=== PATIENT | female | born 1935 | race Caucasian/White ===

== ENCOUNTER 2016-12-15 13:48 | Emergency (ER) | payer MEDICARE, OTHER ==
[2016-12-15 14:03] VITALS: BP 119/67
--- NOTE | 2016-12-15 14:52 | RAD ---
HISTORY: Back pain COMPARISONS: February 02, 2016 VIEWS: 3 , Frontal, lateral, and coned-down lateral sacral views of the lumbar spine FINDINGS: ALIGNMENT: There is grade 1 anterolisthesis of L5 on S1. VERTEBRAL BODIES: There is diffuse osteopenia. There is stable chronic compression deformity of L1 and of T12, the patient appears to be status post percutaneous vertebral augmentation.. There are bilateral pars defects at L5. There is multilevel anterolateral marginal osteophyte formation. JOINTS: There is diffuse facet hypertrophic change. INTERVERTEBRAL DISCS: There is diffuse loss of intervertebral disc height. SOFT TISSUE: Unremarkable. OTHER: The patient is status post internal fixation of the right femur IMPRESSION: 1. OSTEOPENIA. 2. 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 3. 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 4. DEGENERATIVE DISC DISEASE AND OSTEOARTHRITIS
--- NOTE | 2016-12-15 18:28 | UC ---
Back Pain HPI - HPI Summary HPI Summary: PAIN IN LOWER BACK AFTER MOVING LARGE FURNITURE LAST WEEK. HAS HISTORY OF SPONDYLOSIS, AND MRI DIAGNOSED L5 FRACTURE. NO LOSS OF CONTROL OF BLADDER OR BOWELS. NO FEVER. NO PAIN WITH URINATION. HAS HISTORY OF BENIGN HEMATURIA - History of Current Complaint Chief Complaint: UCBackPain Stated Complaint: LOWER BACK PAIN Time Seen by Provider: 12/15/16 14:10 Hx Obtained From: Patient Onset/Duration: Sudden Onset, Lasting Days, Still Present Timing: Lasting Days Severity Initially: Moderate Severity Currently: Moderate Pain Intensity: 5 Pain Scale Used: 0-10 Numeric Back Pain: Is Discrete @ - LOW BACK Character: Dull, Aching, Spasmodic Aggravating: Movement, Lifting, Bending Alleviating: Position Associated Signs And Symptoms: Negative: Fever, Weakness, Numbness, Tingling, Abdominal Pain, Flank Pain, Bladder Incontinence, Bowel Incontinence, Pain with Weight Bearing Related History: Previous Back Injury - Risk Factors AAA Risk Factors: Negative TAD Risk Factors: Negative Cauda Equina Risk Factors: Negative Epidural Abscess Risk Factors: Negative - Allergies/Home Medications Allergies/Adverse Reactions: Allergies Allergy/AdvReac Type Severity Reaction Status Date / Time No Known Allergies Allergy Verified 08/04/15 11:32 Home Medications: Home Medications Aspirin [[place]ury Advanced Aspirin Ex] 500 mg PO 12/15/16 [History] Cholecalciferol [Vitamin D] 1,000 unit PO 12/15/16 [History] PMH/Surg Hx/FS Hx/Imm Hx Previously Healthy: Yes - Surgical History Surgical History: Yes Surgery Procedure, Year, and Place: RT FEMUR LEG SURGERY (FRACTURE) TITANIUM IN LEG PER PATIENT 10 YRS AGO - Family History Known Family History: Negative: Blood Disorder - Social History Occupation: Retired Lives: With Family Alcohol Use: None Substance Use Type: None Smoking Status (MU): Never Smoked Tobacco Review of Systems Constitutional: Negative Skin: Negative Eyes: Negative ENT: Negative Respiratory: Negative Cardiovascular: Negative Gastrointestinal: Negative Genitourinary: Negative Motor: Negative Neurovascular: Negative Musculoskeletal: Arthralgia, Myalgia Neurological: Negative Psychological: Negative All Other Systems Reviewed And Are Negative: Yes Physical Exam Triage Information Reviewed: Yes Appearance: Well-Appearing, Well-Nourished, Pain Distress - MODERATE Vital Signs: Initial Vital Signs Temp 99.0 F 12/15/16 13:59 Pulse 103 12/15/16 13:59 Resp 18 12/15/16 13:59 BP 119/67 12/15/16 13:59 Pulse Ox 98 12/15/16 13:59 Vital Signs Reviewed: Yes Eye Exam: Normal ENT Exam: Normal ENT: Positive: Normal ENT inspection, TMs normal Dental Exam: Normal Neck exam: Normal Neck: Positive: Supple, Nontender, No Lymphadenopathy Respiratory Exam: Normal Respiratory: Positive: Chest non-tender, Lungs clear, Normal breath sounds, No respiratory distress Cardiovascular Exam: Normal Cardiovascular: Positive: RRR, No Murmur, Pulses Normal, Brisk Capillary Refill Abdominal Exam: Normal Abdomen Description: Positive: Nontender, No Organomegaly. Negative: CVA Tenderness (R), CVA Tenderness (L) Musculoskeletal: Positive: Strength Intact, ROM Intact, No Edema, Other: - POSITIVE STRAIGHT LEG RAISE BIALTERALLY Neurological Exam: Normal Psychological Exam: Normal Psychological: Positive: Normal Response To Family Skin Exam: Normal Back Pain Course/Dx - Differential Dx/Diagnosis Differential Diagnosis/HQI/PQRI: Arthritis, Fracture, Herniated Disc, Osteoporosis, Strain, Sprain Provider Diagnoses: ACUTE ON CHRONIC LOW BACK PAIN; LUMBAT OSTEOPENIA; SPONDYLOLYSIS WITH ANTEROLISTHESIS L5-S1; STABLE CHRONIC COMPRESSION DEFORMITIS OF T12 AND L1; DEGENERATIVE DISC DISEASE AND OSTEOARTHRITIS Discharge - Discharge Plan Condition: Stable Disposition: HOME Prescriptions: HYDROcodone/ACETAMIN 5-325 MG* [[place] 5-325 TAB*] 1 tab PO Q8H PRN #12 tab MDD three tabs PRN Reason: Pain Metaxalone TAB* [Skelaxin TAB*] 800 mg PO BID #10 tab Patient Education Materials: Osteoarthritis (ED), Osteoporosis (ED), Lumbar Radiculopathy (ED), Degenerative Disc Disease (ED) Referrals: Nilam Croft MD [Primary Care Provider] - Additional Instructions: PHYSICAL THERAPY REFERRAL: You have been prescribed physical therapy. Treatments may include stretching, exercise, application of heat or cold, and other modalities. After an injury, PT can reduce swelling and pain. In recovery, PT is used to restore mobility and strength. Your specific treatment goals are: Reduction of Swelling (EGS, US, ice as needed) __x___ Pain Reduction (EGS, US, ice as needed) ___x__ TENS Pack Fitting and Instruction Wound Hydrotherapy ___x__ Preservation of Mobility ___x__ Latter Day of Mobility ___x__ Strength Latter Day ___x__ Work or Sports Hardening This instruction sheet also serves as your PHYSICAL THERAPY REFERRAL! Please take it with you to the therapist, so he/she will be aware of your diagnosis and treatment plan. You may see the physical therapist of your choice for these treatments, but may wish to check with your insurance to be sure the provider you select is covered. It's important to see the doctor to whom you have been referred for follow up.
== END 2016-12-15 15:34 | disposition home or self-care (01) ==
LOC: UCEAST 13:48
DX: Z79.82 Long term (current) use of aspirin (principal); M54.5 Low back pain; M85.88 Other specified disorders of bone density and structure, other site; M43.07 Spondylolysis, lumbosacral region; M51.35 Other intervertebral disc degeneration, thoracolumbar region; M19.90 Unspecified osteoarthritis, unspecified site
CPT/HCPCS: 72100; 81003; 99212; G0463

== ENCOUNTER 2020-04-23 07:26 | Observation (INO) ==
[~2020-04-23 07:26] MED LIST: Buffered Lidocaine 1% SYRIN 1 ml INTRADERM ONE; Lactated Ringers 1000 ml BAG 1,000 ML IV SCH
[2020-04-23] MEDS ORDERED: ceFAZolin 2 GM PREMIX 2 GM/50 ML BAG ONE (08:04)
[2020-04-23] MEDS ORDERED: Buffered Lidocaine 1% SYRIN 1 ml INTRADERM ONE (08:04)
[2020-04-23] MEDS ORDERED: Propofol 10 MG/ML 20 ML BTL ONE (08:57)
[2020-04-23] MEDS ORDERED: Succinylcholine 200 mg VIAL 20 mg/ml 10 ml VIAL (200 mg) ONE (08:57)
[2020-04-23] MEDS ORDERED: Midazolam 2 mg/2 ml VIAL 1 mg/ml 2 ml VIAL (2 mg) ONE (08:58)
[2020-04-23] MEDS ORDERED: fentaNYL 100 mcg/2 ml 50 MCG/ML VIAL ONE ×2 (08:58→12:42)
[2020-04-23] MEDS ORDERED: Lidocaine 2% PF 5 ML VIAL ONE ×3 (08:58→10:44)
[2020-04-23] MEDS ORDERED: ROPIVACAINE 5 MG/ML 30 ML BTL (0.5%) ONE (08:59)
[2020-04-23] MEDS ORDERED: Dexmedetomidine 200 mcg/2 ml 2 ml VIAL (200 mcg) ONE (08:59)
[2020-04-23] MEDS ORDERED: Bupivacaine 0.5% SDV PF 30ML VIAL ONE (09:35)
[2020-04-23] MEDS ORDERED: Phenylephrine 40 mcg/mL 10mL (400mcg) SYRINGE ONE ×2 (10:32→12:04)
[2020-04-23] MEDS ORDERED: Dexamethasone IV 4 MG/ML VIAL 1 ml VIAL ONE (10:44)
[2020-04-23] MEDS ORDERED: Ondansetron 4 mg VIAL 2 MG/ML 2 ml VIAL ONE (10:44)
[2020-04-23] MEDS ORDERED: Naloxone 0.4 mg VIAL 0.4 mg/ml 1 ml VIAL IV PRN (11:06)
[2020-04-23] MEDS ORDERED: DiMENhydriNATE IV 50 mg/ml 1 ml VIAL IV PUSH PRN (11:06)
[2020-04-23] MEDS ORDERED: Acetaminophen IV 1 GM/100ML 100 ML ONE (12:06)
[2020-04-23] MEDS ORDERED: Metoclopramide 5 MG/ML VIAL (10 mg) ONE (12:08)
[2020-04-23] MEDS ORDERED: Ondansetron 4 mg VIAL 2 MG/ML 2 ml VIAL IV PRN (12:32)
[2020-04-23] MEDS ORDERED: Ondansetron ODT 4 mg TAB 4 MG TAB PO PRN (12:32)
[2020-04-23] MEDS ORDERED: Morphine 2 MG/ML SYRINGE IV PRN (12:32)
[2020-04-23] MEDS ORDERED: diPHENhydraMINE 25 mg TAB PO PRN (12:32)
[2020-04-23] MEDS ORDERED: diPHENhydraMINE IV 50 MG/ML 1 ml VIAL (BENADRYL) IV PRN (12:32)
[2020-04-23] MEDS ORDERED: HYDROcodone/ACETAMIN 5/325 mg TAB PO PRN ×2 (12:44)
[2020-04-23] MEDS: fentaNYL 100 mcg/2 ml 50 MCG/ML VIAL IV PRN ×3 (12:44→13:11)
[2020-04-24 06:18] LABS: Hematocrit 25 % (35-47); Hemoglobin 8.5 g/dL (12.0-16.0)
[2020-04-24 06:40] LABS: BUN/Creatinine Ratio 18.2 (8-20); Calcium 8.2 mg/dL (8.6-10.3); EGFR African American 74.1 (>60); EGFR Non-African American 61.2 (>60); Potassium 4.2 mmol/L (3.5-5.0)
[2020-04-24 11:44] VITALS: BP 115/48
== END 2020-04-24 12:00 | disposition home or self-care (01) ==
LOC: AA 07:26 → INTOOBSV 07:26 → EDSTATUS 09:30 → SSU 13:38
PROVIDERS: ADMIT Orthopaedic Surgery; ATTEND Orthopaedic Surgery

== ENCOUNTER 2020-06-21 05:36 | Inpatient (IN) ==
[~2020-06-21 05:36] MED LIST changes: -Buffered Lidocaine 1% SYRIN 1 ml INTRADERM ONE; -Lactated Ringers 1000 ml BAG 1,000 ML IV SCH; +Naloxone 0.4 mg VIAL 0.4 mg/ml 1 ml VIAL IV PRN
[2020-06-21] MEDS ORDERED: Lactated Ringers 1000 ml BAG 1,000 ML IV SCH (06:00)
[2020-06-21] MEDS ORDERED: Buffered Lidocaine 1% SYRIN 1 ml INTRADERM ONE (06:00)
[2020-06-21] MEDS ORDERED: ceFAZolin 2 GM PREMIX 2 GM/50 ML BAG ONE ×2 (06:52→12:34)
[2020-06-21] MEDS ORDERED: Propofol 10 MG/ML 20 ML BTL ONE (06:58)
[2020-06-21] MEDS ORDERED: fentaNYL 100 mcg/2 ml 50 MCG/ML VIAL ONE ×2 (06:58→11:39)
[2020-06-21] MEDS ORDERED: Rocuronium 50 mg VIAL 10 mg/ml 5 ml VIAL (50 mg) ONE (06:59)
[2020-06-21] MEDS ORDERED: Lidocaine 2% PF 5 ML VIAL ONE (06:59)
[2020-06-21] MEDS ORDERED: Vancomycin 1,000 MG VIAL ONE (07:17)
[2020-06-21] MEDS ORDERED: Lidocaine 1% MPF 5 ML VIAL ONE (07:18)
[2020-06-21] MEDS ORDERED: ROPIVACAINE 5 MG/ML 30 ML BTL (0.5%) ONE (07:18)
[2020-06-21] MEDS ORDERED: Ondansetron 4 mg VIAL 2 MG/ML 2 ml VIAL IV PRN ×2 (08:29→12:37)
[2020-06-21] MEDS ORDERED: HYDROmorphone 1 MG/1 ML SYRINGE IV PRN (08:29)
[2020-06-21] MEDS ORDERED: fentaNYL 100 mcg/2 ml 50 MCG/ML VIAL IV PRN (08:29)
[2020-06-21] MEDS ORDERED: Naloxone 0.4 mg VIAL 0.4 mg/ml 1 ml VIAL IV PRN (08:29)
[2020-06-21] MEDS ORDERED: Dexamethasone IV 4 MG/ML VIAL 1 ml VIAL ONE (08:48)
[2020-06-21] MEDS ORDERED: Ondansetron 4 mg VIAL 2 MG/ML 2 ml VIAL ONE (08:48)
[2020-06-21] MEDS ORDERED: Phenylephrine IV 10 MG/ML 1 ml VIAL ONE (08:49)
[2020-06-21] MEDS ORDERED: Phenylephrine 40 mcg/mL 10mL (400mcg) SYRINGE ONE (08:49)
[2020-06-21] MEDS ORDERED: Ondansetron ODT 4 mg TAB 4 MG TAB PO PRN (12:37)
[2020-06-21] MEDS ORDERED: Magnesium Hydroxide LIQ 30 ML UDC PO PRN (12:37)
[2020-06-21] MEDS ORDERED: diPHENhydraMINE IV 50 MG/ML 1 ml VIAL (BENADRYL) IV PRN (12:37)
[2020-06-21] MEDS ORDERED: diPHENhydraMINE 25 mg TAB PO PRN (12:37)
[2020-06-21] MEDS ORDERED: Lactulose 30 ml UDC PO PRN (12:37)
[2020-06-21] MEDS ORDERED: oxyCODONE/Acetamin 5/325 mg TAB PO PRN (12:43)
[2020-06-21] MEDS ORDERED: Morphine 2 MG/ML SYRINGE IV PRN (12:43)
[2020-06-21] MEDS ORDERED: CAMPHOR MENTHOL TOPICAL PRN (12:58)
[2020-06-21] MEDS ORDERED: ceFAZolin 1 GM ADVAN 1 GM in NS 0.9% 50 ML 50 ML IVPB SCH (13:00)
[2020-06-21] MEDS ORDERED: Simethicone SUSP ORALSYR 66.66 MG/ML PO ONE (13:25)
[2020-06-21] MEDS: Lactated Ringers 1000 ml BAG 1,000 ML IV SCH ×2 (15:20→23:35)
[2020-06-21] MEDS: ceFAZolin 1 GM ADVAN 1 GM in NS 0.9% 50 ML 50 ML IVPB SCH ×2 (16:05→23:34)
[2020-06-21] MEDS: Analgesic BALM 114 GM TOPICAL SCH ×2 (18:30→21:33)
[2020-06-21] MEDS: Magnesium Hydroxide LIQ 30 ML UDC PO SCH (21:33)
[2020-06-22] MEDS ORDERED: Polyethylene Glycol 3350 17 GM PACKET PO PRN (00:01)
[2020-06-22] MEDS: oxyCODONE/Acetamin 5/325 mg TAB PO PRN ×3 (02:03→11:09)
[2020-06-22 06:47] LABS: Hematocrit 23 % (35-47); Hemoglobin 7.8 g/dL (12.0-16.0); Mean Platelet Volume 8.5 fL (7.4-10.4); Platelet Count 118 10^3/uL (150-450)
[2020-06-22 07:09] LABS: BUN/Creatinine Ratio 18.3 (8-20); Calcium 7.6 mg/dL (8.6-10.3); EGFR African American 80.4 (>60); EGFR Non-African American 66.4 (>60); Potassium 4.2 mmol/L (3.5-5.0)
[2020-06-22] MEDS ORDERED: Vitamin THERAPEUTIC TAB PO SCH (09:00)
[2020-06-22 10:32] LABS: Hematocrit 26 % (35-47); Hemoglobin 8.6 g/dL (12.0-16.0)
[2020-06-22] MEDS: Magnesium Hydroxide LIQ 30 ML UDC PO SCH (11:10)
[2020-06-22] MEDS: Analgesic BALM 114 GM TOPICAL SCH ×2 (11:10→11:33)
[2020-06-22 11:34] VITALS: BP 105/51
== END 2020-06-22 16:00 | disposition home health service (06) | DRG 483 ==
LOC: AA 05:36 → EDSTATUS 11:00 → SSU 13:56
PROVIDERS: ADMIT Orthopaedic Surgery; ATTEND Orthopaedic Surgery